=== PATIENT | male | born 1990 | race Two or more races ===

== ENCOUNTER 2025-03-05 20:27 | Emergency (ER) | payer SELFPAY ==
[2025-03-05 20:38] VITALS: BP 131/79; PULSE 68; RESP 20; TEMP 36.5; O2SAT 97; BMI 31.1
[2025-03-05 21:16] LABS: IDNOW Serial# 08D9AD1C; Strep A Nucleic Acid Negative (Negative)
[2025-03-05 21:18] LABS: COVID-19 Test Negative (Negative); IDNOW Serial# 55D5AD1C; IDNOW Serial# 58CA691E; Influenza B2 Negative (Negative)
--- OUTSIDE RECORDS SUMMARY | 2025-03-05 22:01 | XMS_ITS | Clinical Summary ---
Author Organization [facility] ity Address [address] [place] [address] Care Team Providers Care Rig Superintendent Name Role Phone Stephon Tenorio MD Primary Care Provider [phone] Surgical History Surgery Date Site/Laterality Comments OTHER SURGICAL HISTORY PROCEDURE: DENIES PREVIOUS SURGERY Medical History Medical History Date Comments Asthma 01/14/2014 DX:Asthma Chronic low back pain 08/25/2009 DX:Chronic low back pain Marijuana dependence (CMS/HC C V24, CMS/HCC V28) 08/25/2009 DX:Marijuana dependence (HCC ) Family History Medical History Relation Name Comments Asthma Maternal Grandmother Relation Name Status Comments Brother 1 Alive Brother 2 Alive Father Alive Maternal Grandmother Mother Alive Sister Alive Social History Tobacco Use Types Packs/Day Years Used Date Smoking Tobacco: Never Cigarettes Qu it: 05/20/2010 Smokeless Tobacco: Never Alcohol Use Standard Drinks/Week Comments Yes 0 (1 standard drink = 0.6 oz pur e alcohol) Sex and Gender Information Value Date Recorded Sex Assigned at Not on file Legal Sex Male 9:59 AM EST Gender Identity Not on file Sexual Orientation Not on file Obstetrics History Last Filed Vital Signs Vital Sign Reading Time Taken Comments Blood Pressure 120/80 11/28/2022 4:33 PM EDT Sit ting R Arm Pulse 92 11/28/2022 4:33 PM EDT Temperature - - Respiratory Rate - - Oxygen Saturation - - Inhaled Oxygen Concentration - - Weight 80.7 kg (178 lb) 11/28/2022 4:33 PM EDT Height 167.6 cm (5' 6 ) 11/28/2022 4:33 PM EDT Body Mass Index 28.73 11/28/2022 4:33 PM EDT Plan of Treatment Health Maintenance Due Date Last Done Comments DTaP,Tdap,and Td Vaccines (1 - Tdap) 2008 Hepatitis A Vaccines (1 of 2 - Risk 2-dose series) 2008 Hepatitis B Vaccines (1 of 3 - 19+ 3-dose series) 2008 Pneumococcal Vaccine: Pediat rics (0 to 5 Years) and At-Risk Patients (6 to 49 Years) (1 of 2 - PCV) 2008 HPV Vaccines (1 - 3-dose SCD M series) 2016 Cholesterol Screening (Lipid Panel) 04/17/2022 HIV Screening 04/17/2022 Hepatitis C Screening 04/17/2022 Social Influencers of Health Screening 04/17/2022 Depression Screening 05/20/2024 COVID-19 Vaccine (1 - 2023-2 5 season) 2025 Influenza Vaccine (#1) 2025 RSV Immunization Adult Patie nts (1 - 1-dose 75+ series) 2064 HIB Vaccines Aged Out No longer eligi ble based on patient's age to complete this topic IPV Vaccines Aged Out No longer eligi ble based on patient's age to complete this topic MMR Vaccines Aged Out No longer eligi ble based on patient's age to complete this topic Meningococcal ACWY Vaccine Aged Out N o longer eligible based on patient's age to complete this topic Meningococcal B Vaccine Aged Out No l onger eligible based on patient's age to complete this topic RSV Immunization Patients Un yue 20 months Aged Out No longer eligible b ased on patient's age to complete this topic Varicella Vaccines Aged Out No longer eligible based on patient's age to complete this topic Care Teams Rig Superintendent Relationship Specialty Start Date End Date Stephon Tenorio MD [address] [place] [id number] PCP - General Internal Medicine 01/19/25
--- NOTE | 2025-03-05 22:16 | ED.GENADULT ---
HPI - General Adult General Chief complaint: General Medical Stated complaint: L side jaw/neck pain Time Seen by Provider: 03/05/25 22:06 Source: patient Mode of arrival: ambulatory Limitations: no limitations History of Present Illness ED Provider: Dr. Emily Pearson HPI narrative: Patient comes to the emergency room complaining of 3 days of left-sided neck pain. Patient states it hurts more when he moves his neck. Denies any trauma. Patient states that when he is woke up with it. Patient denies back pain, denies difficulty swallowing. Denies fever or chills Related Data Previous Rx's ?Medication ?Instructions ?Recorded cyclobenzaprine 5 mg tablet 5 mg PO TID PRN muscle spasm #10 03/05/25 tabs ibuprofen 600 mg tablet 600 mg PO Q8H PRN fever or pain 03/05/25 #20 tabs Allergies Allergy/AdvReac Type Severity Reaction Status Date / Time amoxicillin Allergy Rash Verified 03/05/25 20:43 Penicillins Allergy Rash Verified 03/05/25 20:43 Review of Systems Review of Systems: Constitutional : No Weight loss, No Fever, No Chills, No Night Sweats, No Fatigue, No Malaise ENT/Mouth : Complaining of left-sided neck pain for 3 days. Worse with movement. No Hearing loss, No Ear Pain, No Nasal Congestion, No Sinus Pain, No Hoarseness, No sore throat, No Rhinorrhea, No Swallowing Difficulty Eyes: No Eye Pain, No Swelling, No Redness, No Foreign Body, No Discharge, No Vision Changes Cardiovascular : No Chest Pain, No SOB, No Dyspnea on Exertion, No Orthopnea, No Edema, No Palpitations Respiratory : No Cough, No Sputum, No Wheezing, No Smoke Exposure, No Dyspnea Gastrointestinal : No Nausea, No Vomiting, No Diarrhea, No Constipation, No abdominal Pain, No Hematochezia, No Melena Genitourinary : no irregular bleeding, No Dysuria, No Urinary Frequency, No Hematuria, No Urinary Incontinence, No Urgency, No Flank Pain, No Urinary Flow Changes, No Hesitancy Musculoskeletal : No joint pain, No Myalgias, No Joint Swelling Skin : No Skin Lesions, No rash Neuro : No Weakness, No Numbness, No Paresthesias, No Loss of Consciousness, No Dizziness, No Headache Psych : No Anxiety/Panic, No Depression, No SI/HI/AH/VH, No Social Issues, Heme/Lymph: No Bruising, No Bleeding,No Lymphadenopathy Endocrine : No Polyuria, No Polydipsia, No Temperature Intolerance [facility] Social History Social History Advance Directives: No Advance Directives Information Provided: Yes Physical Exam ED Exam Exam: Appearance: Alert. Oriented X3. No acute distress. Eyes: Pupils equal, round and reactive to light. ENT: Pharynx normal. Neck: Normal inspection. Neck supple. No lymph nodes noted. No crepitus, pain to palpation over left sternocleidomastoid, wants small palpable lymph node in the left CVS: Normal heart rate and rhythm. Pulses normal. Normal S1 and S2 Respiratory: No respiratory distress. Breath sounds normal. No Wheezing. No rales Abdomen: Soft and nontender. No rigidity. No distention. Skin: Skin warm and dry. Normal skin color. Normal skin turgor. Extremities: No lower extremity edema. No Lacerations. No Rash Neuro: Oriented X 3. No motor deficit. No sensory deficit. Moving all extremities. No slurred speech. CN 2 through 12 grossly intact Psych: calm, cooperative, normal affect Vital Signs: Vital Signs - 24 hr 03/05/25 20:38 Temperature 97.7 F Pulse Rate 68 Respiratory Rate 20 Blood Pressure 131/79 Pulse Oximetry 97 Oxygen Delivery Method Room Air BMI result Body Mass Index 31.1 Medical Decision Making Medical Decision Making [facility] Narrative: My interpretation of labs: Patient tested negative for flu strep and COVID. On physical exam, patient complaining of left-sided neck pain on palpation over the sternocleidomastoid. Patient likely has torticollis. Patient declined IM medication. Differential Diagnosis Differential Diagnoses: The differential diagnosis associated with the presentation includes (Torticollis, musculoskeletal pain, COVID, influenza, strep, viral illness) Lab Data [facility] Lab Attestation statement: I reviewed the patient's lab results. Labs: Lab Results 03/05/25 Range/Units 20:55 COVID-19 (PRINCESS) Negative (Negative) COVID-19 Clin Com See Note Influenza Type A (ANABELLA) Negative (Negative) Influenza Type B (ANABELLA) Negative (Negative) Influenza A & B Note See Note S. pyogenes GrpA ANABELLA Negative (Negative) Discharge Plan Discharge Clinical Impression: Lymphadenopathy, Torticollis Patient Disposition: Home, Self-Care Instructions: Lymphadenopathy (ED), Acute Neck Pain (ED) Additional Instructions: Please follow-up with your primary care physician tomorrow. If you have any worsening or new symptoms, please return to the emergency room or call 911 Prescriptions: New cyclobenzaprine 5 mg tablet 5 mg PO TID PRN (Reason: muscle spasm) Qty: 10 0RF ibuprofen 600 mg tablet 600 mg PO Q8H PRN (Reason: fever or pain) Qty: 20 0RF Print Language: Angolan
[2025-03-05 22:33] VITALS: BP 131/79; PULSE 68; RESP 20; TEMP 36.5; O2SAT 97
== END 2025-03-05 22:34 | disposition home or self-care (01) ==
PROVIDERS: Emergency Provider Emergency Medicine
DX: R68.84 Jaw pain (principal); M54.2 Cervicalgia; M43.6 Torticollis; R59.1 Generalized enlarged lymph nodes; Z11.52 Encounter for screening for COVID-19
CPT/HCPCS: 87502; 87635; 87651; 99282; 99283